=== PATIENT | female | born 1945 | race Caucasian/White ===

== ENCOUNTER 2022-06-25 08:45 | Outpatient (CLI) | payer MEDICARE | END 2022-06-25 08:46 | LOC: PET 08:45 | PROVIDERS: ATTEND Internal Medicine | DX: R91.8 Other nonspecific abnormal finding of lung field (principal); C34.31 Malignant neoplasm of lower lobe, right bronchus or lung; R59.9 Enlarged lymph nodes, unspecified | CPT/HCPCS: 78815; A9552 ==